=== PATIENT | female | born 1985 | race Caucasian/White ===

== ENCOUNTER 2022-08-15 13:21 | Emergency (ER) | payer MEDICAID ==
[2022-08-15 14:38] VITALS: BP 129/98; PULSE 92
[2022-08-15 14:53] LABS: CORONAVIRUS COVID-19 NAA NEGATIVE (NEGATIVE)
== END 2022-08-15 15:45 | disposition home or self-care (01) ==
LOC: LB.ED 13:21
DX: J98.9 Respiratory disorder, unspecified (principal); F17.210 Nicotine dependence, cigarettes, uncomplicated; Z91.018 Allergy to other foods; Z88.6 Allergy status to analgesic agent; Z20.822 Contact with and (suspected) exposure to COVID-19
CPT/HCPCS: 87804; 87804-59; 99283; U0002

== ENCOUNTER 2022-12-30 18:12 | Emergency (ER) | payer MEDICAID ==
[2022-12-30 18:23] VITALS: BP 126/88; PULSE 95
[2022-12-30] MEDS ORDERED: Acetaminophen/HYDROcodone 325-5 MG Tab ONE (18:45)
== END 2022-12-30 18:50 | disposition home or self-care (01) ==
LOC: LB.ED 18:12
DX: S93.402A Sprain of unspecified ligament of left ankle, initial encounter (principal); J45.909 Unspecified asthma, uncomplicated; Z88.5 Allergy status to narcotic agent; Z91.018 Allergy to other foods; Z79.51 Long term (current) use of inhaled steroids; X50.1XXA Overexertion from prolonged static or awkward postures, initial encounter
CPT/HCPCS: 73610-LT; 99283; A9270-GY